=== PATIENT | male | born 1965 | race Caucasian/White ===

== ENCOUNTER → 2019-12-25 | Outpatient (CLI) | payer OTHER ==
[2019-12-25] VITALS (9 sets, daily range): BP systolic 105–126; BP diastolic 49–82
[~2019-12-25] VITALS: Ht 175.3 cm; Wt 103.6 kg
[~2019-12-25] MED LIST: ACTOS 45 MG45 M1 PO; ALPRAZOLAM XR1 MG PO; ASA81BEC PO; CYMBALTA60 MG PO; FLOVENT DISKU100 MCG INH; GLIMEPIRIDE4 MG PO; GLUCOPHAGE1000 MG PO; LIPITOR40 MG PO; LOPRESSOR50 PO; NITROSTAT0.4 M1 SUBLING; NORCO 10-325 T1 EACH PO; PLAVIX 75 MG TA75 MG PO; TRAZODONE HCL100 MG PO
[2019-12-25 08:18] LABS: HEMATOCRIT 41.7 % (42.0-52.0); HEMOGLOBIN 14.4 gm/dL (14.0-18.0); MCH 32.6 pg (26.0-34.0); MCHC 34.6 g/dL (28.0-37.0); MCV 94.2 fL (80.0-100.0); MPV 8.5 fl. (7.2-11.1); RBC 4.43 mil/uL (4.50-6.00); RDW-CV 14.5 % (10.5-14.5); WBC 10.9 thou/uL (4.0-11.0)
[2019-12-25 08:27] LABS: ANION GAP 10 mmol/L (7-16); BUN 8 mg/dL (7-18); CALCIUM 8.5 mg/dL (8.5-10.1); CHLORIDE 100 mmol/L (98-107); CO2 26 mmol/L (21-32); CREATININE 0.7 mg/dL (0.6-1.3); GLUCOSE 187 mg/dL (70-99); POTASSIUM 4.2 mmol/L (3.5-5.1); SODIUM 136 mmol/L (136-145)
[2019-12-25 08:28] LABS: APTT 27.5 Seconds (25.0-31.3); INR 1.2
[2019-12-25 08:31] LABS: ALBUMIN 3.5 g/dL (3.4-5.0); ALKALINE PHOSPHATASE 113 U/L (46-116); CHOLESTEROL 186 mg/dL (<200); HDL CHOLESTEROL 49 mg/dL (>40); LDL CHOLESTEROL 119 mg/dL (<100); SERUM ASSESSMENT Clear; SGOT 43 U/L (15-37); SGPT 41 U/L (30-65); TC:HDL 3.8 Ratio (Not establshd); TOTAL BILIRUBIN 0.6 mg/dL (<0.1-1.0); TOTAL PROTEIN 7.6 g/dL (6.4-8.2); TRIGLYCERIDE 92 mg/dL (<150); VLDL 18 mg/dL (<40)
--- NOTE | 2019-12-25 15:44 | EKG ---
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1965 Requested By: Lázaro Vazquez Order Number: [id number] Jamshid MD: Lázaro Vazquez Measurements Intervals [place] Rate: 80 P: 59 MN: 167 QRS: -137 QRSD: 142 T: 72 QT: 450 QTc: 520 Interpretive Statements Sinus rhythm Atrial premature complex Probable left atrial enlargement Right bundle branch block No previous ECG available for comparison Electronically Signed On 12-25-2019 15:42:59 CDT by Lázaro Vazquez [email or web address] <ELECTRONICALLY SIGNED> By: Lázaro Vazquez MD, [facility] 12/25/19 1542 3 Lázaro Vazquez MD, FACC /EPI
--- NOTE | 2019-12-25 16:33 | CARD ---
[address] [address] CARDIAC CATH REPORT Name: ERICKSON CORNEJO Room: [facility]#: [id number] Admission: 12/25/19 Attend Phys: Lázaro Vazquez MD, Discharge: Date of : 61 Report #: [id number] THIS REPORT FOR: //name// cc: Sandeep Mejia MD, Steven E. MD ~ APPROVED REPORT Study performed: 12/25/2019 09:37:44 Patient Details Patient Status: Out-Patient Room #: The patient is a 54 year-old male Event Personnel Lázaro Vazquez Supply And Distribution Manager, Katerin Mcgarry RN Image Archivist, Mayte Carpenter RN Image Archivist, Roderick Aguilar Scrub, Thuy Cox RTR Monitor Procedures Performed Art Access - L femoral artery, Left Heart Cath Coronaries, Bypass Grafts LHCCORCABG , Hemostasis w/ Mynx Indication Non-STEMI Risk Factors Obesity, Hypercholesterolemia, Hypertension Admission/Lab Medications/Medications given during procedure Oxygen Nasal cannula 2 l per min, Midazolam (Versed) IV 1 mg, Fentanyl IV 25 mcg, Lidocaine Subcut 18 ml Procedure Narrative The patient was brought electively to the Cardiac Catheterization Laboratory and was prepped and draped in a sterile manner. The left femoral groin area was infiltrated with 2% Lidocaine subcutaneous anesthesia. A 6F Braggs sheath was inserted into the left femoral artery. Coronary angiography was performed using coronary diagnostic catheters. The right coronary system was accessed and visualized with a 6F JR4 catheter. The left coronary system was accessed and visualized with a 6F JL4 catheter. The left ventricle was accessed and visualized with a 6F Pigtail catheter. Left ventricular/Aortic Valve gradient assessed via catheter pullback. Left ventriculogram was performed in SANCHEZ projection. Closure device was deployed with a 6 Fr Mynx. The patient tolerated the procedure well and there were no [facility] [address] [place] [address] CARDIAC CATH REPORT Name: ERICKSON CORNEJO Room: [facility]#: [id number] Admission: 12/25/19 Attend Phys: Lázaro Vazquez MD, Discharge: Date of : 61 Report #: [id number] complications associated with the procedure. There was no hematoma. Right femoral artery access was attempted unsuccessfully. Intraoperative Conscious Sedation Sedation start time: 09:45 Case end Time: 11:17 Fentanyl 25 mcg Versed 1 mg Fluoro Time: 6.0 minutes Dose: DAP 48105 cGycm2 945 mGy Contrast Type and Amount: Visipaque 115 ml Coronary Angiography The patient's coronary anatomy is right dominant. [place] Artery Percent Stenosis 1. Widely patent STALEY graft to the LAD with 75% distal LAD stenosis with prominent collateral filling of the distal right coronary artery via septal aquacultural worker supervisor 2. Total occlusion in the midportion of the previously constructed saphenous vein graft to the circumflex Diagnostic Cath Left Main 90% distal stenosis LAD 100% proximal occlusion Circumflex 100% proximal occlusion Right Coronary Dominant vessel with 100% proximal occlusion Left Ventriculography The left ventricle is moderately dilated in size with Decreased contractility. The left ventricular ejection fraction is estimated to be 25%. There is significant diffuse hypokinesis of left ventricular wall motion Hemodynamics The aortic pressure is 113/75 mmHg with a mean of 89 mmHg. The left ventricular pressure is 91/4 mmHg with a mean of mmHg. The left ventricular end diastolic pressure is 19 mmHg. Conclusion 1. Severe coronary artery disease characterized by the following: A 90% distal left [place] [address] CARDIAC CATH REPORT Name: CLEMENTEERICKSON Room: [facility]#: [id number] Admission: 12/25/19 Attend Phys: Lázaro Vazquez MD, Discharge: Date of : 61 Report #: [id number] 100% proximal LAD stenosis C 100% proximal circumflex occlusion D 100% occlusion of the proximal portion of the dominant right coronary artery 2. Graft study characterized by the following: A widely patent STALEY graft to the mid LAD with 75% mid to distal LAD stenosis and prominent collaterals through the septum to the distal right coronary artery B total occlusion of the previously constructed saphenous vein graft to the circumflex in its midportion 3. Severe reduction in global left ventricular systolic function, estimated ejection fraction being 25% 4. Moderate elevation of left ventricular end-diastolic pressure at rest Recommendations Cardiac Risk Reduction Program Aggressive Medical Therapy Diagnostic Cath Approved by: Lázaro Vazquez MD Date/Time: 12/25/2019 16:29:44 <ELECTRONICALLY SIGNED> By: Lázaro Vazquez MD, [facility] 12/25/19 1632 163 [id number] Vazquez MD, FAC /INF
== END ==
LOC: M.CL 07:19
PROVIDERS: Internal Medicine
DX: I21.4 Non-ST elevation (NSTEMI) myocardial infarction (principal); I25.10 Atherosclerotic heart disease of native coronary artery without angina pectoris; F41.9 Anxiety disorder, unspecified; F32.9 Major depressive disorder, single episode, unspecified; M19.90 Unspecified osteoarthritis, unspecified site; I10 Essential (primary) hypertension; E78.5 Hyperlipidemia, unspecified; E11.9 Type 2 diabetes mellitus without complications; Z79.899 Other long term (current) drug therapy; Z79.84 Long term (current) use of oral hypoglycemic drugs; Z79.82 Long term (current) use of aspirin; Z98.890 Other specified postprocedural states

== ENCOUNTER 2020-07-27 10:37 | Inpatient (IN) | payer OTHER ==
[~2020-07-27] VITALS: Ht 175.3 cm; Wt 118.8 kg
[2020-07-27 10:45] VITALS: BP 137/87
[2020-07-27 11:32] LABS: ABSOLUTE BASOPHILS 0.1 thou/uL (0.0-0.2); ABSOLUTE EOSINOPHILS 0.1 thou/uL (0.0-0.7); ABSOLUTE LYMPHOCYTES 0.8 thou/uL (0.8-5.3); ABSOLUTE MONOCYTES 0.4 thou/uL (0.0-1.2); ABSOLUTE NEUTROPHILS 7.7 thou/uL (1.6-8.1); BASOPHILS 0.9 %; EOSINOPHILS 1.3 %; HEMATOCRIT 40.3 % (42.0-52.0); HEMOGLOBIN 13.1 gm/dL (14.0-18.0); LYMPHOCYTES 9.2 %; MCH 29.5 pg (26.0-34.0); MCHC 32.4 g/dL (28.0-37.0); MCV 90.9 fL (80.0-100.0); MONOCYTES 3.9 %; MPV 7.5 fl. (7.2-11.1); NUCLEATED RBCS 0 /100WBC; PLATELET COUNT* 205 thou/uL (150-400); POLYS 84.7 %; RBC 4.43 mil/uL (4.50-6.00); RDW-CV 16.7 % (10.5-14.5); WBC 9.1 thou/uL (4.0-11.0)
[2020-07-27 11:42] LABS: CALCIUM 8.1 mg/dL (8.5-10.1); CREATININE 0.6 mg/dL (0.6-1.3); POTASSIUM 3.7 mmol/L (3.5-5.1)
[2020-07-27 11:43] LABS: APTT 25.9 Seconds (25.0-31.3); INR 1.3; PROTIME 13.3 Seconds (9.20-11.50)
[2020-07-27 11:54] LABS: ALBUMIN 3.4 g/dL (3.4-5.0); CK-MB MASS 1.9 ng/mL (<0.5-3.6); MAGNESIUM 2.1 mg/dL (1.8-2.4); TOTAL BILIRUBIN 0.6 mg/dL (<0.1-1.0); TOTAL PROTEIN 7.3 g/dL (6.4-8.2)
--- NOTE | 2020-07-27 17:16 | EKG ---
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 : 1965 Requested By: Ryan Perez Order Number: [id number] MD: Jamar Mayer Measurements Intervals [place] Rate: 95 P: 45 AL: 162 QRS: -130 QRSD: 134 T: 67 QT: 421 QTc: 530 Interpretive Statements Sinus rhythm Probable left atrial enlargement Right bundle branch block Compared to ECG 12/25/2019 08:44:42 Atrial premature complex(es) no longer present Electronically Signed On 07-27-2020 17:16:51 WELT RANDER by Jamar Mayer [email or web address] <ELECTRONICALLY SIGNED> By: Jamar Mayer MD, FACC 07/27/20 1716 1056 1056 Jamar Mayer MD, FAC /EPI
[2020-07-27 18:03] VITALS: BP 132/65
[2020-07-28] VITALS (8 sets, daily range): BP systolic 92–154; BP diastolic 62–97
--- NOTE | 2020-07-28 14:18 | 2DMMODE ---
[place] [address] 2 D/M-MODE ECHOCARDIOGRAM Name: ERICKSON CORNEJO Room: [address] IN [facility]#: [id number] Admission: 07/27/20 Attend Phys: Dante Mcclain Discharge: Date of : 61 Date of Service: 07/28/20 1418 Report #: [id number] THIS REPORT FOR: cc: Sandeep Mejia MD, Steven E. MD [place], Michael J. MD [facility] ~ APPROVED REPORT Study performed: 07/28/2020 10:31:35 EXAM: Comprehensive 2D, Doppler, and color-flow Echocardiogram Patient Location: In-Patient Room #: [facility] Status: routine BSA: 2.32 HR: 97 bpm BP: 135/79 mmHg Rhythm: NSR Other Information Study Quality: Good Indications Congestive Heart Failure CAD 2D Dimensions IVSd: 9.55 (7-11mm) LVOT Diam: 19.56 (18-24mm) LVDd: 61.23 mm PWd: 8.94 (7-11mm) Ascending Ao: 35.66 (22-36mm) LVDs: 58.62 (25-40mm) Aortic Root: 33.84 mm Volumes Left Atrial Volume (Systole) LA ESV Index: 35.40 mL/m2 Aortic Valve AoV Peak Arjun.: 1.21 m/s AO Peak Gr.: 5.86 mmHg LVOT Max P.68 mmHg AO Mean Gr.: 3.44 mmHg LVOT Mean P.32 mmHg LVOT Max V: 0.82 m/s AO V2 VTI: 19.94 cm LVOT Mean V: 0.53 m/s GERALD (VTI): 2.12 cm2 LVOT V1 VTI: 14.07 [place] [address] 2 D/M-MODE ECHOCARDIOGRAM Name: ERICKSON CORNEJO Room: [address] IN [facility]#: [id number] Admission: 07/27/20 Attend Phys: Dante Mcclain Discharge: Date of : 61 Date of Service: 07/28/20 1418 Report #: [id number] Mitral Valve MV Decel. Time: 176.19 ms MV PHT: 51.10 ms MVA (PHT): 4.31 cm2 TDI Medial E' Arjun.: 0.09 m/s Lateral E' Arjun.: 0.08 m/s Pulmonary Valve PV Peak Arjun.: 0.67 m/s PV Peak Gr.: 1.81 mmHg Tricuspid Valve RAP Estimate: 5.00 mmHg TR Peak Gr.: 23.54 mmHg RVSP: 28.00 mmHg PA Pressure: 28.00 mmHg Left Ventricle Left ventricle is moderately dilated. There is severe global hypokinesis which is more pronounced in the inferior and lateral santoro. There is normal left ventricular wall thickness. Left ventricular systolic function is severely decreased. LVEF is 25-30%. Transmitral Doppler flow pattern suggests restrictive physiology. Right Ventricle Right ventricle is dilated. The right ventricular systolic function is normal. Atria Left atrium is moderately dilated. Right atrium is mildly dilated. Aortic Valve Mild aortic valve sclerosis. No aortic regurgitation is present. There is no aortic valvular stenosis. Mitral Valve The mitral valve is normal in structure. Trace mitral regurgitation. No evidence of mitral valve stenosis. Tricuspid Valve The tricuspid valve is normal in structure. Mild tricuspid regurgitation. The RVSP is 40-[place] [address] 2 D/M-MODE ECHOCARDIOGRAM Name: ERICKSON CORNEJO Shar Room: [address] IN [facility]#: [id number] Admission: 07/27/20 Attend Phys: Dante Mcclain Discharge: Date of : 61 Date of Service: 07/28/20 1418 Report #: [id number] Pulmonic Valve The pulmonary valve is normal in structure. Mild pulmonic regurgitation. Great Vessels The aortic root is normal in size. IVC is dilated and collapses <50% with inspiration. Pericardium There is no pericardial effusion. <Conclusion> Left ventricle is moderately dilated. There is normal left ventricular wall thickness. Left ventricular systolic function is severely decreased. LVEF is 25-30%. Right ventricle is dilated. Left atrium is moderately dilated. Right atrium is mildly dilated. Mild aortic valve sclerosis. Trace mitral regurgitation. Mild tricuspid regurgitation. The RVSP is 40-45 mmHg. Mild pulmonic regurgitation. <ELECTRONICALLY SIGNED> By: Jamar Mayer MD, FACC 07/28/20 1418 1418 1418 Jamar Mayer MD, FACC /INF
[2020-07-28 16:31] LABS: CHOLESTEROL 136 mg/dL (<200); HDL CHOLESTEROL 44 mg/dL (>40); LDL CHOLESTEROL 73 mg/dL (<100); TC:HDL 3.1 Ratio (Not establshd); TRIGLYCERIDE 96 mg/dL (<150); VLDL 19 mg/dL (<40)
[2020-07-28 16:32] LABS: SERUM ASSESSMENT Clear
[2020-07-29] VITALS: BP 106/69
[2020-07-29 04:00] VITALS: BP 106/69
[2020-07-29 05:21] LABS: CALCIUM 8.2 mg/dL (8.5-10.1); CREATININE 0.6 mg/dL (0.6-1.3); POTASSIUM 4.4 mmol/L (3.5-5.1)
[2020-07-29 08:00] VITALS: BP 118/73
[2020-07-29 12:00] VITALS: BP 108/64
[2020-07-29 16:00] VITALS: BP 102/62
[2020-07-29 20:00] VITALS: BP 98/50
[2020-07-30] VITALS: BP 108/63
[2020-07-30 04:15] VITALS: BP 100/70
[2020-07-30 04:32] LABS: HEMOGLOBIN 13.1 gm/dL (14.0-18.0); MCH 29.6 pg (26.0-34.0); MCHC 32.7 g/dL (28.0-37.0); MCV 90.5 fL (80.0-100.0); MPV 7.8 fl. (7.2-11.1); RBC 4.42 mil/uL (4.50-6.00); RDW-CV 16.4 % (10.5-14.5); WBC 9.9 thou/uL (4.0-11.0)
[2020-07-30 04:50] LABS: CALCIUM 8.2 mg/dL (8.5-10.1); CREATININE 0.7 mg/dL (0.6-1.3); MAGNESIUM 2.1 mg/dL (1.8-2.4); POTASSIUM 4.2 mmol/L (3.5-5.1); TOTAL BILIRUBIN 0.4 mg/dL (<0.1-1.0); TOTAL PROTEIN 6.9 g/dL (6.4-8.2)
[2020-07-30] MEDS ORDERED: PREDNISONE 10 M10 M1 PO (07:58)
[2020-07-30] MEDS ORDERED: SPIRONOLACTONE25 MG PO (07:58)
[2020-07-30] MEDS ORDERED: LEVOFLOXACIN500 MG PO (07:58)
[2020-07-30] MEDS ORDERED: ENTRESTO 24 MG1 EACH PO (07:58)
[2020-07-30] MEDS ORDERED: TOPROL XL50 MG PO (07:58)
[2020-07-30] MEDS ORDERED: POTASSIUM20 PO (07:58)
[2020-07-30 11:26] VITALS: BP 100/70
== END 2020-07-30 12:10 | disposition home or self-care (01) | DRG 177 ==
LOC: M.ERS 10:37 → M.TBA-ER 12:14 → M.2W 07-28 09:40
PROVIDERS: Family Medicine; Internal Medicine; Registered Nurse; ADMIT Internal Medicine; ATTEND Internal Medicine
DX: J15.6 Pneumonia due to other Gram-negative bacteria (principal); I50.41 Acute combined systolic (congestive) and diastolic (congestive) heart failure; J96.01 Acute respiratory failure with hypoxia; J44.1 Chronic obstructive pulmonary disease with (acute) exacerbation; J44.0 Chronic obstructive pulmonary disease with (acute) lower respiratory infection; I11.0 Hypertensive heart disease with heart failure; Z20.828 Contact with and (suspected) exposure to other viral communicable diseases; F32.9 Major depressive disorder, single episode, unspecified; F41.9 Anxiety disorder, unspecified; E78.5 Hyperlipidemia, unspecified; I25.10 Atherosclerotic heart disease of native coronary artery without angina pectoris; E11.9 Type 2 diabetes mellitus without complications; F12.90 Cannabis use, unspecified, uncomplicated; F17.210 Nicotine dependence, cigarettes, uncomplicated; I25.5 Ischemic cardiomyopathy; M19.09 Primary osteoarthritis, other specified site; H54.61 Unqualified visual loss, right eye, normal vision left eye; Z86.73 Personal history of transient ischemic attack (TIA), and cerebral infarction without residual deficits; I25.2 Old myocardial infarction; Z90.49 Acquired absence of other specified parts of digestive tract; Z95.5 Presence of coronary angioplasty implant and graft; Z82.49 Family history of ischemic heart disease and other diseases of the circulatory system; Z80.1 Family history of malignant neoplasm of trachea, bronchus and lung; Z81.8 Family history of other mental and behavioral disorders; Z95.1 Presence of aortocoronary bypass graft; Z71.6 Tobacco abuse counseling; Z79.82 Long term (current) use of aspirin; Z79.899 Other long term (current) drug therapy; Z23 Encounter for immunization